=== PATIENT | female | born 1970 | race Caucasian/White ===

== ENCOUNTER 2018-07-10 19:23 | Emergency (ER) | payer OTHER ==
[~2018-07-10] VITALS: Ht 162.6 cm; Wt 100.8 kg
[2018-07-10 19:26] VITALS: BP 150/69
== END 2018-07-10 20:57 | disposition home or self-care (01) ==
LOC: ED 20:07
DX: S53.401A Unspecified sprain of right elbow, initial encounter (principal); S63.502A Unspecified sprain of left wrist, initial encounter; W01.0XXA Fall on same level from slipping, tripping and stumbling without subsequent striking against object, initial encounter; Y93.01 Activity, walking, marching and hiking; Y92.410 Unspecified street and highway as the place of occurrence of the external cause; Y99.8 Other external cause status
CPT/HCPCS: 29260; 99283

== ENCOUNTER 2018-11-14 17:20 | Emergency (ER) | payer OTHER ==
[~2018-11-14] VITALS: Ht 170.2 cm; Wt 99.4 kg
[2018-11-14] MEDS ORDERED: ASPIRIN 81 MG TABLET CHEW PO ONE (17:30)
[2018-11-14 18:07] LABS: ALANINE AMINOTRANSFERASE 21 U/L (12-78); ALBUMIN 3.9 g/dL (3.4-5.0); ANION GAP 6 mmol/L (5-15); CALCIUM 8.9 mg/dL (8.5-10.1); CHLORIDE 108 mmol/L (98-107)
[2018-11-14 18:11] LABS: ALKALINE PHOSPHATASE 89 U/L (45-117); BILIRUBIN,TOTAL 0.6 mg/dL (0.2-1.0); CREATININE 0.92 mg/dL (0.55-1.02); TOTAL PROTEIN 8.2 g/dL (6.4-8.2); TROPONIN I < 0.015 ng/mL (0.000-0.045)
[2018-11-14 18:19] LABS: BASOPHILS # (AUTO) 0.07 x10^3/uL (0-0.1); BASOPHILS % (AUTO) 1 % (0-1); EOSINOPHILS # (AUTO) 0.15 x10^3/uL (0-0.4); EOSINOPHILS % (AUTO) 1 % (1-7); LYMPHOCYTES # (AUTO) 4.03 x10^3/uL (1-3.4); LYMPHOCYTES % (AUTO) 33 % (22-44); MD NO; MEAN CORPUSCULAR HGB CONC 32.4 g/dL (32.4-35.8); MEAN CORPUSCULAR VOLUME 83.5 fL (80-100); MONOCYTES # (AUTO) 0.95 x10^3/uL (0.2-0.8); MONOCYTES % (AUTO) 8 % (2-9); NEUTROPHILS # (AUTO) 7.15 x10^3/uL (1.8-6.8); NEUTROPHILS % (AUTO) 58 % (42-75); PLATELET COUNT 344 x10^3/uL (130-400); RED BLOOD COUNT 5.91 x10^6/uL (3.82-5.3); RED CELL DISTRIBUTION WIDTH 12.5 % (9.6-15.2)
[2018-11-14] MEDS ORDERED: ASPIRIN 81 MG TABLET CHEW ONE (18:59)
[2018-11-14 19:05] VITALS: BP 137/63
--- NOTE | 2018-11-14 19:05 | NUR ---
First contact w/ pt. Pt amb w/ steady gait to room from lobby.
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
--- NOTE | 2018-11-14 19:40 | NUR ---
All results back. Pt up for recheck. Resting comfortably on gurney. Nadn. Awaiting pa recheck.
== END 2018-11-14 20:17 | disposition home or self-care (01) ==
LOC: ED 20:11
DX: R00.2 Palpitations (principal); R07.89 Other chest pain; R06.02 Shortness of breath; Z98.890 Other specified postprocedural states
CPT/HCPCS: 36415; 71045; 80053; 84443; 84484; 85025; 93005; 99284

== ENCOUNTER 2018-12-21 09:05 | Outpatient (CLI) | payer OTHER | END 2018-12-21 23:59 | disposition home or self-care (01) | LOC: CVU 09:05 | PROVIDERS: ATTEND Internal Medicine Cardiovascular Disease | DX: I08.1 Rheumatic disorders of both mitral and tricuspid valves (principal) | CPT/HCPCS: 93306 ==

== ENCOUNTER 2019-01-07 19:00 | Emergency (ER) | payer OTHER ==
[~2019-01-07] VITALS: Ht 170.2 cm; Wt 97.5 kg
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
--- NOTE | 2019-01-07 19:37 | NUR ---
DR JFAFE BS FOR EXAM, ACCOMPANIED BY GARETT GUNDERSON AND THIS RN.
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
[2019-01-07] MEDS ORDERED: SODIUM CHLORIDE FLUSH 10ML SYR IVF ONE (20:00)
[2019-01-07] MEDS ORDERED: MORPHINE SULFATE 4 MG/ML, 1ML IVPush ONE (20:00)
[2019-01-07] MEDS ORDERED: ONDANSETRON 2MG/ML, 2ML IVPush ONE (20:00)
[2019-01-07] MEDS ORDERED: NEOSPORIN OINT. PKT 1 PACKET ONE (20:01)
[2019-01-07] MEDS ORDERED: MORPHINE SULFATE 4 MG/ML, 1ML ONE (20:14)
[2019-01-07] MEDS ORDERED: ONDANSETRON 2MG/ML, 2ML ONE (20:14)
--- NOTE | 2019-01-07 20:15 | NUR ---
PT IN RADIOLOGY
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
[2019-01-07] MEDS ORDERED: OMNIPAQUE 350 MG/ML, 100ML BOTTLE ONE (20:30)
--- NOTE | 2019-01-07 20:40 | NUR ---
INFORMED PT OF PENDING [facility] CONSULT. PT DECLINED CONSULT OFFER AT THIS TIME.
--- NOTE | 2019-01-07 20:54 | NUR ---
IV LOCK: 20F RAC; SITE PATENT. ZOFRAN & MORPHINE GIVEN PER EMAR. PT TO CT PER CHELSEY.
--- NOTE | 2019-01-07 21:26 | NUR ---
PT'S DAUGHTER NOW IN ROOM.
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
--- NOTE | 2019-01-07 22:45 | NUR ---
ALTA BS ([employer]) TO DISCUSS POLICE REPORT. PT'S DAUGHTER AND THIS RN IN ROOM. PT NOT SURE SHE WANTS TO FILE A REPORT AT THIS TIME; THINKS SHE MIGHT WANT TO WAIT UNTIL AFTER HER PENDING SURGERY
--- NOTE | 2019-01-07 23:27 | NUR ---
PT DECIDED NOT TO FILE A POLICE REPORT, AT THIS TIME. POLICE OFFICERS DHRUV & ALFREDO DISCUSSED PT'S OPTIONS, PROVIDED THEIR ADVICE, PROVIDED BLANK REPORT DOCUMENT SO THAT PT MAY WRITE DOWN EVENTS FOR FUTURE REPORTING. THIS RN & PT'S DAUGHTER IN ROOM AT THAT TIME. WOUND DOCUMENTATION RULERS PROVIDED TO PT W/ INSTRUCTIONS FOR USE SHOULD SHE CHOOSE TO HAVE WOUND PICTURES TAKEN; UNDERSTANDING VERBALIZED. STATEMENT WRITTEN BY GARETT GUNDERSON AND ADDED TO CHART; COPY GIVEN TO PT.
--- NOTE | 2019-01-07 23:34 | NUR ---
PT REPORT TO TIMOTHY FLETCHER. PT CARE TRANSFERRED.
[2019-01-07 23:43] VITALS: BP 134/74
[2019-01-08] MEDS ORDERED: None at this Time (11:50)
== END 2019-01-08 | disposition home or self-care (01) ==
LOC: ED 21:27
DX: G89.11 Acute pain due to trauma (principal); R51 Headache; M54.2 Cervicalgia; M54.6 Pain in thoracic spine; M25.512 Pain in left shoulder; M79.632 Pain in left forearm; M25.562 Pain in left knee; T22.20XA Burn of second degree of shoulder and upper limb, except wrist and hand, unspecified site, initial encounter; T31.0 Burns involving less than 10% of body surface; Y04.8XXA Assault by other bodily force, initial encounter; Y93.89 Activity, other specified; Y92.009 Unspecified place in unspecified non-institutional (private) residence as the place of occurrence of the external cause; Y99.8 Other external cause status
CPT/HCPCS: 16020; 70450; 70498; 71101; 72072; 73090; 73564; 96374; 96375; 99284; J2270; J2405; Q9967

== ENCOUNTER 2019-01-09 06:43 | Day surgery (SDC) | payer OTHER ==
[2019-01-08 11:36] LABS: BASOPHILS # (AUTO) 0.05 x10^3/uL (0-0.1); BASOPHILS % (AUTO) 0 % (0-1); EOSINOPHILS # (AUTO) 0.07 x10^3/uL (0-0.4); EOSINOPHILS % (AUTO) 1 % (1-7); LYMPHOCYTES # (AUTO) 2.26 x10^3/uL (1-3.4); LYMPHOCYTES % (AUTO) 19 % (22-44); MD NO; MEAN CORPUSCULAR HEMOGLOBIN 26.7 pg (27.0-34.8); MEAN CORPUSCULAR HGB CONC 32.2 g/dL (32.4-35.8); MEAN CORPUSCULAR VOLUME 83.2 fL (80-100); MEAN PLATELET VOLUME 8.8 fL (7.4-10.4); MONOCYTES # (AUTO) 0.67 x10^3/uL (0.2-0.8); MONOCYTES % (AUTO) 6 % (2-9); NEUTROPHILS # (AUTO) 8.62 x10^3/uL (1.8-6.8); NEUTROPHILS % (AUTO) 74 % (42-75); PLATELET COUNT 314 x10^3/uL (130-400); RED BLOOD COUNT 5.47 x10^6/uL (3.82-5.3); RED CELL DISTRIBUTION WIDTH 13.3 % (9.6-15.2)
[2019-01-08 11:47] LABS: ALBUMIN 3.7 g/dL (3.4-5.0); ANION GAP 8 mmol/L (5-15); CALCIUM 8.7 mg/dL (8.5-10.1); CHLORIDE 108 mmol/L (98-107)
[2019-01-08 11:50] LABS: ALANINE AMINOTRANSFERASE 22 U/L (12-78); ALKALINE PHOSPHATASE 83 U/L (45-117); CREATININE 0.97 mg/dL (0.55-1.02); TOTAL PROTEIN 7.4 g/dL (6.4-8.2)
[~2019-01-09] VITALS: Ht 170.2 cm; Wt 100.0 kg
[~2019-01-09 06:43] MED LIST: None at this Time
[2019-01-09] MEDS ORDERED: SODIUM CHLORIDE 0.9% 1,000 ML IV SCH (06:52)
[2019-01-09] MEDS ORDERED: MIDAZOLAM 1 MG/ML, 5ML ONE (08:44)
[2019-01-09] MEDS ORDERED: FENTANYL PF 100 MCG/2ML ONE (08:44)
[2019-01-09] MEDS ORDERED: ISOPROTERENOL 0.2MG/ML, 5ML ONE (08:45)
[2019-01-09] MEDS ORDERED: ADENOSINE 6 MG/2 ML ONE (08:45)
[2019-01-09] MEDS ORDERED: LIDOCAINE 2%, 20ML ONE (08:45)
[2019-01-09] MEDS ORDERED: ACETAMINOPHEN 325 MG TABLET PO PRN (10:30)
== END 2019-01-09 14:52 | disposition home or self-care (01) ==
LOC: CACL 06:43
PROVIDERS: ATTEND Internal Medicine Cardiovascular Disease
DX: I47.1 Supraventricular tachycardia (principal); F41.9 Anxiety disorder, unspecified; E89.0 Postprocedural hypothyroidism; Z72.89 Other problems related to lifestyle; Z79.899 Other long term (current) drug therapy; Z82.49 Family history of ischemic heart disease and other diseases of the circulatory system
CPT/HCPCS: 36415; 71046; 80053; 85025; 93005; 93613; 93623; 93653; 99156; 99157; C1730; C1894; C2630; J2250; J3010; J0153